=== PATIENT | male | born 1975 | race Caucasian/White ===

== ENCOUNTER 2017-02-13 09:51 | Emergency (ER) | payer MEDICAID ==
[~2017-02-13] VITALS: Ht 167.6 cm; Wt 64.0 kg
[2017-02-13 09:55] VITALS: Ht 167.6 cm; Wt 64.0 kg
[2017-02-13] MEDS ORDERED: IBUPROFEN 600 MG TAB PO ONE (10:30)
--- NOTE | 2017-02-13 12:20 | RADRPT ---
PROCEDURE: XR Hip. CLINICAL INDICATION: Bilateral hip pain TECHNIQUE: AP and frog lateral views of the bilateral hips were performed. COMPARISON: None. FINDINGS: There is no radiographic evidence of acute fracture of either hip. Joint spaces are preserved. There is a small os acetabuli versus labral calcification superiorly on the right. The soft tissues are o therwise grossly unremarkable. IMPRESSION: No radiographic evidence of acute osseous abnormality or significant degenerative change of either h ip. RPTAT: UU .Marbin Watson MD, Date Time Electronically viewed and signed by .Marbin Watson MD, on 02/13/2017 12:20 .K/
--- NOTE | 2017-02-13 12:21 | RADRPT ---
PROCEDURE: XR Cervical Spine. CLINICAL INDICATION: Neck pain, trauma TECHNIQUE: Three views of the cervical spine were performed. Frontal, lateral, and AP open-mouth o dontoid. The images were reviewed on a PACS workstation. COMPARISON: None. FINDINGS: There is no radiographic evidence of acute fracture noting straightening of the usual cervical lordo sis. Vertebral body heights are preserved. Prevertebral soft tissues are normal. Lung apices are jayy ar. IMPRESSION: 1. No radiographic evidence of acute osseous abnormality of the cervical spine noting straightening of the usual cervical lordosis. In the setting of trauma, CT should still be considered for more se nsitive fracture evaluation. RPTAT: UU .Marbin Watson MD, MD Date Time Electronically viewed and signed by .Marbin Watson MD, on 02/13/2017 12:21 .K/
--- NOTE | 2017-02-13 12:23 | RADRPT ---
PROCEDURE: XR bilateral shoulders CLINICAL INDICATION: Bilateral shoulder pain, history of fall TECHNIQUE: 3 images of the left shoulder and 3 images of the right shoulder COMPARISON: None available FINDINGS: Both shoulders demonstrate no radiographic evidence of acute fracture. There is mild acromioclavicul ar osteoarthrosis on the left. There are mild enthesopathic changes at the greater tuberosity is deann aterally. The visualized lungs are clear. IMPRESSION: 1. No radiographic evidence of acute osseous abnormality of either shoulder. 2. 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 RPTAT: UU .Marbin Watson MD, MD Date Time Electronically viewed and signed by .Marbin Watson MD, on 02/13/2017 12:23 .K/
--- NOTE | 2017-02-13 12:24 | RADRPT ---
PROCEDURE: XR Lumbar Spine. CLINICAL INDICATION: Low back pain TECHNIQUE: 3 images of the lumbar spine were obtained. COMPARISON: No prior studies are available for comparison. FINDINGS: There are 5 non rib-bearing lumbar type vertebral bodies. There is straightening of the usual lumbar lordosis otherwise vertebral body height and alignment is preserved. There is no radiographic evidence of acute fracture or subluxation. There is mild degenerative disease and degenerative anterior enthesopathy from L3-L4 through L5-S1. Paraspinal soft tissues are grossly unremarkable. Limited assessment of the sacroiliac joints is grossly unremarkable. IMPRESSION: 1. No radiographic evidence of acute osseous abnormality noting straightening of the usual lumbar lo rdosis. 2. Mild degenerative disease and degenerative anterior enthesopathy from L3 - L4 through L5 - S1. RPTAT: UU .Marbin Watson MD, MD Date Time Electronically viewed and signed by .Marbin Watson MD, on 02/13/2017 12:24 .K/
--- NOTE | 2017-02-13 12:27 | RADRPT ---
PROCEDURE: XR Knee. CLINICAL INDICATION: Bilateral knee pain TECHNIQUE: Three views of the right knee and 3 views of the left knee are available for review. COMPARISON: None available FINDINGS: Right knee: There is no evidence of acute fracture. Joint spaces are preserved. There is no signifi cant knee joint effusion. The soft tissues appear grossly unremarkable. Left knee: There is an age indeterminate 5 mm avulsion fragment at the fibular styloid that may be a remote injury. There is no definite acute fracture. The soft tissues appear grossly unremarkable. Joint spaces are preserved. IMPRESSION: 1. Age indeterminate 5 mm avulsion fracture at the fibular styloid on the left, favor remote injury. If there is clinical concern for acute fracture at this location, CT may offer additional detail. 2. Otherwise, no radiographic evidence of acute osseous abnormality of either knee. RPTAT: UU .Marbin Watson MD, Date Time Electronically viewed and signed by .Marbin Watson MD, on 02/13/2017 12:26 .K/
[2017-02-13] MEDS ORDERED: IBUP-1542 PO (13:08)
[2017-02-13] MEDS ORDERED: ORPH100T PO (13:08)
--- NOTE | 2017-02-13 13:27 | ERD ---
ER Documentation Chief Complaint Date/Time DATE: 02/13/17 TIME: 13:20 Chief Complaint pt bib friend with c/o fall on , c/o back, arm, leg pain HPI This is a 41-year-old male presents to the ER brought in by a friend stating that he fell from a 12 foot ladder on . Patient fell onto his hands and knees and is now complaining of neck pain, bilateral shoulder pain, lower back pain, bilateral hip pain and bilateral knee pain. Patient did not hit his head he denies any loss of consciousness he denies any nausea vomiting or diarrhea. He denies any headaches. Patient denies any numbness or tingling of his upper or lower extremities he does not have any weakness. ROS 12 point review of systems was done, all negative except per HPI. Medications Home Meds Active Scripts Orphenadrine Citrate (Norflex) 100 Mg Tablet.sa, 100 MG PO BID for 7 Days, TAB.SA Prov:REYNOLD BYNUM 02/13/17 Ibuprofen* (Motrin*) 600 Mg Tab, 600 MG PO Q6, #30 TAB Prov:REYNOLD BYNUM 02/13/17 Allergies Allergies: Coded Allergies: No Known Allergy (Unverified , 02/13/17) PMhx/Soc Medical and Surgical Hx: pt denies Medical Hx, pt denies Surgical Hx Hx Alcohol Use: No Hx Substance Use: No Hx Tobacco Use: No Physical Exam Vitals Vital Signs Date Time Temp Pulse Resp B/P Pulse Ox O2 Delivery O2 Flow Rate FiO2 02/13/17 09:55 98.1 64 18 138/80 99 Physical Exam GENERAL: The patient is well developed and appropriate for usual state of health , in no apparent distress. HEENT: Atraumatic. Conjunctivae are pink. Pupils equal, round, and reactive to light. No houser sign no raccoon eyes. NECK: C-spine is soft and supple. There is no cervical lymphadenopathy. Patient has full range of motion of the neck without any limitations or pain. CHEST: Clear to auscultation bilaterally. There are no rales, wheezes or rhonchi. HEART: Regular rate and rhythm. No murmurs, clicks, rubs or gallops. BACK: No midline or flank tenderness. Patient is tender to palpation along the paraspinal muscle of the lumbar spine. There is no lumbar spine tenderness. EXTREMITIES: Equal pulses bilaterally. There is no peripheral clubbing, cyanosis or edema. No focal swelling or erythema. Full range of motion. Grossly neurovascularly intact. Patient has full and nonpainful range of motion of the hips. He is not tender to palpation along the hips. There is no erythema, areas of ecchymosis. Patient has painful extension and flexion of bilateral knees, he however does not have any tenderness to palpation around the knee or the knee joint. Negative anterior drawer negative posterior drawer negative Lockman bilaterally. +2 pulses normal plantar and dorsiflexion. Neurovascularly intact to L4 L5-S1. NEURO: Alert and oriented. Cranial nerves II through XII are intact. Motor strength in all 4 extremities with 5/5 strength. Sensation grossly intact. Normal speech and gait. SKIN: There is no apparent rash or petechia. The skin is warm and dry. Results 24 hrs Current Medications Medications (Trade) Dose Ordered Sig/Norman Route PRN Reason Start Time Stop Time Status Last Admin Dose Admin Ibuprofen (Motrin) 600 mg ONCE ONCE PO 02/13/17 10:30 02/13/17 10:31 DC 02/13/17 10:33 Procedures/MDM This is a 41-year-old male presents to the ER after he fell from a ladder on . Patient's physical examination is benign. He did not have any neurological deficits and did not complain of any headache, loss of consciousness, nausea or vomiting. CT scan of the brain is not indicated at this time. Images were all normal, except for a possible avulsion fracture to the left knee. Radiologist did mention that this may be an old fracture. Because patient did have trauma on he will be put in a knee immobilizer and given crutches. Patient was neurovascularly intact before and after splint application. He was told to urgently follow up with an orthopedic doctor. Patient has been afebrile and extremely well-appearing. He is able to ambulate in the ER without any difficulties. He will be sent home with ibuprofen and Norflex. He is to follow-up with his primary care doctor within 1 -2 days return to ER sooner if symptoms worsen. My medical decision making shared with the patient he understands and agrees with plan. Departure Diagnosis: Primary Impression: Fall Condition: Stable Patient Instructions: Fall, Mechanical Additional Instructions: Llame al doctor MAANA y keny asael MORENITA PARA DENTRO DE 1-2 KEYES.Dgale a la secretaria que nosotros le instruimos hacer esta morenita.Avise o llame si mondragon condicin se empeora antes de la morenita. Regresa aqui si peor o no mejor. REYNOLD BYNUM Feb 13, 2017 13:26
[2017-02-13 13:52] VITALS: BP 130/78; PULSE 78; RESP 18; TEMP 98.4
== END 2017-02-13 13:42 | disposition home or self-care (01) ==
LOC: FTE 09:51
DX: S39.92XA Unspecified injury of lower back, initial encounter (principal); S49.91XA Unspecified injury of right shoulder and upper arm, initial encounter; S49.92XA Unspecified injury of left shoulder and upper arm, initial encounter; S19.9XXA Unspecified injury of neck, initial encounter; S89.92XA Unspecified injury of left lower leg, initial encounter; S89.91XA Unspecified injury of right lower leg, initial encounter; W11.XXXA Fall on and from ladder, initial encounter; Y92.9 Unspecified place or not applicable
CPT/HCPCS: 72040; 72100; 73030; 73520; 73562; Z7502; Z7610